=== PATIENT | female | born 1990 | race Caucasian/White ===

== ENCOUNTER → 2017-03-07 | Outpatient (CLI) | payer BC | END | disposition home or self-care (01) | LOC: LAB 12:06 | DX: Z32.00 Encounter for pregnancy test, result unknown (principal) ==

== ENCOUNTER → 2017-04-06 | Outpatient (CLI) | payer BC | END | disposition home or self-care (01) | LOC: LAB 12:54 | DX: O24.410 Gestational diabetes mellitus in pregnancy, diet controlled (principal); Z3A.00 Weeks of gestation of pregnancy not specified ==

== ENCOUNTER → 2017-04-11 | Outpatient (CLI) | payer BC ==
[2017-04-11 10:43] LABS: ADD MAN DIFF? NO
[2017-04-11 10:51] LABS: BASOPHIL # 0.1 10^3/ul (0.0-0.1); BASOPHILS % 0.8 % (0.0-2.0); EOSINOPHILS # 0.3 10^3/ul (0.0-0.5); HEMATOCRIT 31.6 % (37.0-47.0); HEMOGLOBIN 10.7 g/dl (12.0-16.0); LYMPHOCYTES # 1.9 10^3/ul (0.8-2.9); LYMPHOCYTES % 23.7 % (15.0-51.0); MEAN CORPUSCULAR HEMOGLOBIN 30.9 pg (29.0-33.0); MEAN CORPUSCULAR HGB CONC 33.9 g/dl (32.0-37.0); MEAN CORPUSCULAR VOLUME 91.3 fl (82.0-101.0); MEAN PLATELET VOLUME 9.3 fl (7.4-10.4); MONOCYTE # 0.4 10^3/ul (0.3-0.9); MONOCYTES % 5.4 % (0.0-11.0); NEUTROPHIL # 5.2 10^3/ul (1.6-7.5); NEUTROPHILS % 64.6 % (39.0-77.0); PLATELET COUNT 185 10^3/UL (140-415); RED BLOOD COUNT 3.46 10^6/ul (4.20-5.40); RED CELL DISTRIBUTION WIDTH 13.9 % (11.5-14.5)
== END | disposition home or self-care (01) ==
LOC: LAB 09:28
DX: E11.9 Type 2 diabetes mellitus without complications (principal)
CPT/HCPCS: 82950; 85025

== ENCOUNTER 2017-07-13 11:36 | Outpatient (CLI) | payer BC | END 2017-07-13 16:02 | disposition home or self-care (01) | LOC: OBT 11:36 → L-D 11:37 → OBT 16:02 | DX: O26.893 Other specified pregnancy related conditions, third trimester (principal); R10.2 Pelvic and perineal pain; Z3A.38 38 weeks gestation of pregnancy | CPT/HCPCS: 76818 ==

== ENCOUNTER 2017-07-20 06:08 | Inpatient (IN) | payer BC ==
[2017-07-20] MEDS ORDERED: CARBOPROST 250 MCG INJ IM ×2 (06:30→09:30)
[2017-07-20] MEDS ORDERED: LACTATED RINGER'S 1,000 ML IV (06:30)
[2017-07-20] MEDS ORDERED: METHYLERGONOVINE 0.2 MG INJ IM ×2 (06:30→09:30)
[2017-07-20] MEDS ORDERED: CEFAZOLIN 2 GM/50 ML (PMX) 50 ML IV (06:30)
[2017-07-20] MEDS ORDERED: MISOPROSTOL 200 MCG TAB PR ×2 (06:30→09:30)
[2017-07-20] MEDS ORDERED: OXYTOCIN 30 UNITS/LR 500 ML IV ×3 (06:30→09:30)
[2017-07-20 06:38] LABS: ADD MAN DIFF? NO
[2017-07-20 06:42] LABS: WHITE BLOOD COUNT 7.2 10^3/ul (4.8-10.8)
[2017-07-20 06:42] LABS: BASOPHILS % 0.4 % (0.0-2.0); EOSINOPHILS # 0.1 10^3/ul (0.0-0.5); EOSINOPHILS % 0.8 % (0.0-7.0); HEMATOCRIT 32.2 % (37.0-47.0); HEMOGLOBIN 10.8 g/dl (12.0-16.0); LYMPHOCYTES # 2.3 10^3/ul (0.8-2.9); LYMPHOCYTES % 32.1 % (15.0-51.0); MEAN CORPUSCULAR HEMOGLOBIN 29.7 pg (29.0-33.0); MEAN CORPUSCULAR HGB CONC 33.5 g/dl (32.0-37.0); MEAN CORPUSCULAR VOLUME 88.5 fl (82.0-101.0); MEAN PLATELET VOLUME 9.7 fl (7.4-10.4); MONOCYTE # 0.6 10^3/ul (0.3-0.9); MONOCYTES % 7.6 % (0.0-11.0); NEUTROPHIL # 4.2 10^3/ul (1.6-7.5); NEUTROPHILS % 58.4 % (39.0-77.0); PLATELET COUNT 192 10^3/UL (140-415); RED BLOOD COUNT 3.64 10^6/ul (4.20-5.40); RED CELL DISTRIBUTION WIDTH 13.7 % (11.5-14.5)
[2017-07-20 07:16] LABS: INR 0.91; PARTIAL THROMBOPLASTIN TIME 25.4 Sec (25.0-35.0); PROTIME 12.3 Sec (11.9-14.9)
[2017-07-20] MEDS ORDERED: FENTAnyl 50 MCG/ML VIAL (07:45)
[2017-07-20] MEDS ORDERED: morphine SULFATE/PF (10 MG/10 ML) INJ (07:45)
[2017-07-20] MEDS ORDERED: PHENYLephrine (100 MCG/ML) 5ML SYG ×2 (07:45→08:40)
[2017-07-20] MEDS ORDERED: ONDANSETRON 4 MG INJ (07:46)
[2017-07-20] MEDS ORDERED: FAMOTIDINE 20 MG INJ (07:46)
[2017-07-20] MEDS ORDERED: BUPIVACAINE 0.75%/DEXT (SPINAL) 2 ML INJ (07:46)
[2017-07-20] MEDS ORDERED: DEXAMETHASONE 4 MG/ML 1 ML INJ (07:46)
[2017-07-20] MEDS ORDERED: LIDOCAINE 100 MG SYRINGE ×2 (08:01)
[2017-07-20 08:07] LABS: HEPATITIS B SURFACE ANTIGEN NEGATIVE (NEGATIVE)
[2017-07-20] MEDS ORDERED: DIPHENHYDRAMINE 50 MG INJ (08:38)
[2017-07-20] MEDS ORDERED: ZOLPIDEM 5 MG TAB PO (09:00)
[2017-07-20] MEDS ORDERED: DIPHENHYDRAMINE 50 MG INJ IV (09:00)
[2017-07-20] MEDS ORDERED: NALOXONE (0.4 MG/ML) INJ IV (09:00)
[2017-07-20] MEDS ORDERED: HYDROmorphONE 0.5 MG/0.5 ML SYG IV ×2 (09:00)
[2017-07-20] MEDS: OXYTOCIN 30 UNITS/LR 500 ML IV ×2 (10:52→15:37)
[2017-07-20] MEDS: LACTATED RINGER'S 1,000 ML IV ×2 (11:10→17:09)
[2017-07-20] MEDS: ONDANSETRON 4 MG INJ IV (11:43)
[2017-07-20 18:06] LABS: RAPID PLASMA REAGIN NONREACTIVE (NR)
[2017-07-20] MEDS: KETOROLAC 30 MG INJ IV (18:59)
[2017-07-20] MEDS: LANOLIN 7 GM TUBE TOP (19:05)
[2017-07-21] MEDS: LACTATED RINGER'S 1,000 ML IV ×3 (01:42→17:09)
[2017-07-21] MEDS: KETOROLAC 30 MG INJ IV (07:04)
[2017-07-21] MEDS ORDERED: HYDROCODONE/APAP (5/325) TAB PO (09:00)
[2017-07-21 09:20] LABS: ADD MAN DIFF? NO
[2017-07-21 09:31] LABS: WHITE BLOOD COUNT 9.1 10^3/ul (4.8-10.8)
[2017-07-21 09:31] LABS: BASOPHILS % 0.3 % (0.0-2.0); EOSINOPHILS % 0.3 % (0.0-7.0); HEMATOCRIT 28.8 % (37.0-47.0); HEMOGLOBIN 9.3 g/dl (12.0-16.0); LYMPHOCYTES # 2.2 10^3/ul (0.8-2.9); LYMPHOCYTES % 24.5 % (15.0-51.0); MEAN CORPUSCULAR HEMOGLOBIN 28.9 pg (29.0-33.0); MEAN CORPUSCULAR HGB CONC 32.3 g/dl (32.0-37.0); MEAN CORPUSCULAR VOLUME 89.4 fl (82.0-101.0); MONOCYTE # 0.6 10^3/ul (0.3-0.9); NEUTROPHIL # 6.1 10^3/ul (1.6-7.5); NEUTROPHILS % 67.2 % (39.0-77.0); PLATELET COUNT 191 10^3/UL (140-415); RED BLOOD COUNT 3.22 10^6/ul (4.20-5.40); RED CELL DISTRIBUTION WIDTH 13.8 % (11.5-14.5)
[2017-07-21] MEDS: IBUPROFEN 800 MG TAB PO ×2 (12:00→18:00)
[2017-07-21] MEDS: HYDROCODONE/APAP (5/325) TAB PO ×2 (16:58→21:19)
[2017-07-22] MEDS: HYDROCODONE/APAP (5/325) TAB PO ×3 (00:38→13:06)
[2017-07-22] MEDS: LACTATED RINGER'S 1,000 ML IV ×2 (01:09→09:09)
[2017-07-22] MEDS: IBUPROFEN 800 MG TAB PO ×3 (06:00→12:00)
== END 2017-07-22 15:15 | disposition home or self-care (01) | DRG 766 ==
LOC: L-D 06:08 → PP1 11:13
PROVIDERS: Obstetrics & Gynecology
PROC: 10D00Z1 Extraction of Products of Conception, Low, Open Approach (ICD-10-PCS; principal; 2017-07-20 07:30)
PROC: 3E033VJ Introduction of Other Hormone into Peripheral Vein, Percutaneous Approach (ICD-10-PCS; 2017-07-20 07:30)
DX: O34.211 Maternal care for low transverse scar from previous cesarean delivery (principal); Z3A.39 39 weeks gestation of pregnancy; Z37.0 Single live birth
CPT/HCPCS: 85025; 85610; 85730; 86592; 86850; 86900; 86901; 87340; 99464

== ENCOUNTER 2018-04-14 09:10 | Emergency (ER) | payer BC | END 2018-04-14 12:59 | disposition home or self-care (01) | LOC: E/R 09:10 | DX: R53.1 Weakness (principal); R51 Headache | CPT/HCPCS: 70551; 72141; 72146; 99284-25 ==

== ENCOUNTER → 2018-08-12 | Outpatient (CLI) | payer BC ==
[2018-08-12 10:50] LABS: HAAIG REFLEX REFLEX FILED
[2018-08-12 11:37] LABS: C-REACTIVE PROTEIN HIGH SENSI 0.07 mg/dl (0.00-0.74)
[2018-08-12 11:46] LABS: HEPATITIS B SURFACE ANTIGEN NEGATIVE (NEGATIVE)
[2018-08-12 12:04] LABS: HEPATITIS B CORE ANTIBODY REACTIVE (NEGATIVE); HEPATITIS C VIRAL ANTIBODY NEGATIVE (NEGATIVE)
[2018-08-12 12:18] LABS: ERYTHROCYTE SEDIMENTATION RATE 9 mm/Hr (0-20)
[2018-08-12 21:07] LABS: RHEUMATOID FACTOR NEGATIVE (NEGATIVE)
[2018-08-14 14:01] LABS: ANA SCREEN NEGATIVE (NEGATIVE)
[2018-08-15 09:27] LABS: NIL 0.02 IU/mL; QUANTIFERON(R)-TB GOLD NEGATIVE (NEGATIVE); TB-NIL 0.01 IU/mL
== END | disposition home or self-care (01) ==
LOC: LAB 10:13
DX: R53.82 Chronic fatigue, unspecified (principal); D72.810 Lymphocytopenia; G35 Multiple sclerosis; R53.83 Other fatigue
CPT/HCPCS: 85651; 86038; 86140; 86235; 86430; 86480; 86617; 86704; 86709; 86787; 86803; 87340

== ENCOUNTER → 2018-09-13 | Outpatient (CLI) | payer BC ==
[2018-09-13 12:40] LABS: ADD MAN DIFF? NO
[2018-09-13 12:42] LABS: WHITE BLOOD COUNT 3.5 10^3/ul (4.8-10.8)
[2018-09-13 12:42] LABS: BASOPHILS % 0.6 % (0.0-2.0); EOSINOPHILS # 0.1 10^3/ul (0.0-0.5); EOSINOPHILS % 3.8 % (0.0-7.0); HEMATOCRIT 36.6 % (37.0-47.0); HEMOGLOBIN 12.3 g/dl (12.0-16.0); LYMPHOCYTES # 1.5 10^3/ul (0.8-2.9); LYMPHOCYTES % 42.5 % (15.0-51.0); MEAN CORPUSCULAR HEMOGLOBIN 29.8 pg (29.0-33.0); MEAN CORPUSCULAR HGB CONC 33.6 g/dl (32.0-37.0); MEAN CORPUSCULAR VOLUME 88.6 fl (82.0-101.0); MEAN PLATELET VOLUME 8.9 fl (7.4-10.4); MONOCYTE # 0.2 10^3/ul (0.3-0.9); MONOCYTES % 5.8 % (0.0-11.0); NEUTROPHIL # 1.6 10^3/ul (1.6-7.5); PLATELET COUNT 196 10^3/UL (140-415); RED BLOOD COUNT 4.13 10^6/ul (4.20-5.40); RED CELL DISTRIBUTION WIDTH 12.6 % (11.5-14.5)
[2018-09-13 12:46] LABS: ADD UMIC YES; UR ASCORBIC ACID NEGATIVE (NEGATIVE); UR BILIRUBIN (Dip) NEGATIVE (NEGATIVE); UR BLOOD (Dip) NEGATIVE (NEGATIVE); UR CLARITY SLIGHTLY CLOUDY (CLEAR); UR COLOR YELLOW (YELLOW); UR GLUCOSE (Dip) NEGATIVE (NEGATIVE); UR KETONES (Dip) NEGATIVE (NEGATIVE); UR LEUKOCYTE ESTERASE (Dip) TRACE Leu/ul (NEGATIVE); UR MUCUS MODERATE /HPF (NONE SEEN); UR NITRITE (Dip) NEGATIVE (NEGATIVE); UR RBC 1 /HPF (0-5); UR SPECIFIC GRAVITY (Dip) 1.024 (1.003-1.030); UR SQUAMOUS EPITHELIAL CELL FEW /HPF (FEW); UR TOTAL PROTEIN (Dip) NEGATIVE (NEGATIVE); UR UROBILINOGEN (Dip) NEGATIVE (NEGATIVE); UR WBC 1 /HPF (0-5)
[2018-09-13 13:01] LABS: IRON 56 ug/dl (35-150)
[2018-09-13 13:06] LABS: ALANINE AMINOTRANSFERASE 22 IU/L (13-69); ALBUMIN 4.4 g/dl (3.3-4.9); ALBUMIN/GLOBULIN RATIO 1.29; ALKALINE PHOSPHATASE 69 IU/L (42-121); ANION GAP 11 (5-13); ASPARTATE AMINO TRANSFERASE 24 IU/L (15-46); BILIRUBIN,INDIRECT 0.5 mg/dl (0-1.1); BILIRUBIN,TOTAL 0.5 mg/dl (0.2-1.3); BLOOD UREA NITROGEN 13 mg/dl (7-20); CALCIUM 9.7 mg/dl (8.4-10.2); CARBON DIOXIDE 27 mmol/L (21-31); CHLORIDE 104 mmol/L (97-110); CREATININE 0.67 mg/dl (0.44-1.00); Estimated GFR > 60 mL/min (>60); GLUCOSE 120 mg/dl (70-220); POTASSIUM 3.8 mmol/L (3.5-5.1); SODIUM 142 mmol/L (135-144); TOTAL PROTEIN 7.8 g/dl (6.1-8.1)
[2018-09-13 13:10] LABS: % IRON SATURATION 15 % SAT (22-52); TOTAL IRON BINDING CAPACITY 381 ug/dl (241-421)
== END | disposition home or self-care (01) ==
LOC: LAB 12:12
DX: A08.4 Viral intestinal infection, unspecified (principal)
CPT/HCPCS: 80053; 81001; 82306; 82728; 83540; 84443; 85025; 86674